=== PATIENT | male | born 1970 | race Two or more races ===

== ENCOUNTER 2017-04-12 15:12 | Emergency (ER) | payer MEDICAID ==
[~2017-04-12] VITALS: Ht 180.3 cm; Wt 124.3 kg
[2017-04-12] MEDS ORDERED: SODIUM CHLORIDE 0.9% 1,000 ML IV ONE ×2 (16:39→18:15)
[2017-04-12] MEDS ORDERED: InsuLIN REG 1unit/0.01ml Soln (100units/ml) IV ONE (17:00)
[2017-04-12 17:15] LABS: Basophils # (auto) 0 uL; Basophils % (auto) 0.4 % (0.0-2.0); CONDITION Y; Eosinophils # (auto) 0.2 uL; Eosinophils % (auto) 2.9 % (0.0-7.0); Hematocrit 47.8 % (41.0-53.0); Hemoglobin 16.8 g/dL (13.5-17.5); Lymphocytes # (auto) 2.2 uL; Lymphocytes % (auto) 31.2 % (10.0-50.0); Mean Corpuscular Hemoglobin 31.1 pg (28.0-32.0); Mean Corpuscular Hgb Conc. 35.2 g/dL (32.0-36.0); Mean Corpuscular Volume 88.3 fL (80.0-100.0); Mean Platelet Volume 11.1 fL (7.4-10.4); Monocytes # (auto) 0.6 uL; Monocytes % (auto) 8.1 % (0.0-12.0); Neutrophils # (auto) 4.1 uL; Neutrophils % (auto) 57.4 % (37.0-80.0); Platelet Count (auto) 223 10^3/uL (140-450); White Blood Cell 7.1 10^3/uL (4.4-10.8)
[2017-04-12 17:26] LABS: Albumin 3.7 g/dL (3.4-5.0); Calcium 8.2 mg/dL (8.5-10.1)
[2017-04-12 17:32] LABS: Bilirubin, Total 0.7 mg/dL (0.2-1.0); Total Protein 7.7 g/dL (6.4-8.2)
[2017-04-12 17:38] LABS: INR 0.86 (0.9-1.15); Prothrombin Time 9.4 sec (9.37-12.3)
[2017-04-12 17:58] LABS: Potassium 4.3 mmol/L (3.5-5.1)
[2017-04-12 18:23] VITALS: BP 142/78
[2017-04-12] MEDS ORDERED: HYDROcodone-ACET 10/325MG TAB PO ONE (18:45)
== END 2017-04-12 18:46 | disposition home or self-care (01) ==
LOC: ER 15:16
DX: M79.601 Pain in right arm (principal); E11.65 Type 2 diabetes mellitus with hyperglycemia; R20.0 Anesthesia of skin
CPT/HCPCS: 36415; 71010; 80053; 82962; 83605; 84484; 85025; 85610; 85730; 96361; 96374; 99285; J1815; J7030

== ENCOUNTER 2024-06-21 06:10 | Emergency (ER) | payer MEDICAID ==
[~2024-06-21] VITALS: Ht 182.9 cm; Wt 127.0 kg
[2024-06-21 06:59] LABS: Chloride 104 mmol/L (98-107); Potassium 4.2 mmol/L (3.5-5.1); Sodium 133 mmol/L (136-145)
[2024-06-21 07:00] LABS: Anion Gap 6 (5-15); Carbon Dioxide 23 mmol/L (20-30)
[2024-06-21 07:05] LABS: BUN/Creatinine Ratio 10.3 (10.0-20.0); Blood Urea Nitrogen 10 mg/dL (9-23); Glucose 222 mg/dL (74-106)
[2024-06-21 07:17] LABS: Basophils # (auto) 0.1 10 ^3/uL (0-0.2); Basophils % (auto) 0.9 % (0.0-2.0); Eosinophils # (auto) 0.1 10 ^3/uL (0-0.8); Eosinophils % (auto) 1.6 % (0.0-7.0); Hematocrit 48.9 % (41.0-53.0); Hemoglobin 17.4 g/dL (13.5-17.5); Lymphocytes # (auto) 2.6 10 ^3/uL (0.4-5.4); Lymphocytes % (auto) 30.6 % (10.0-50.0); Mean Corpuscular Hemoglobin 32.3 pg (28.0-32.0); Mean Corpuscular Hgb Conc. 35.5 g/dL (32.0-36.0); Monocytes # (auto) 0.9 10 ^3/uL (0-1.3); Monocytes % (auto) 10.4 % (0.0-12.0); Neutrophils # (auto) 4.7 10 ^3/uL (1.6-8.6); Neutrophils % (auto) 56.5 % (37.0-80.0); Nucleated Red Blood Cells % 0.1 %; Platelet Count (auto) 208 10^3/uL (140-450); Red Blood Cells 5.38 10^6/uL (4.5-5.90); White Blood Cell 8.4 10^3/uL (4.4-10.8)
[2024-06-21 07:20] VITALS: BP 124/91; PULSE 136; RESP 18; TEMP 98.1; O2SAT 98
[2024-06-21] MEDS: METOPROLOL TARTRATE 50 MG TAB PO ONE (07:46)
[2024-06-21] MEDS: ASPirin 325 MG TAB PO ONE (07:47)
== END 2024-06-21 08:41 | disposition left against medical advice (07) ==
LOC: ER 06:10
DX: R00.0 Tachycardia, unspecified (principal); I10 Essential (primary) hypertension; E11.9 Type 2 diabetes mellitus without complications
CPT/HCPCS: 36415; 71045; 80048; 84484; 85025; 93005